=== PATIENT | female | born 1995 ===

== ENCOUNTER 2023-07-02 23:32 | Emergency (ER) | payer SELFPAY ==
[~2023-07-02] VITALS: Ht 162.6 cm; Wt 68.0 kg
[2023-07-02 23:33] VITALS: BP 112/66; TEMP 97.2; O2SAT 98
[2023-07-02] MEDS ORDERED: CETI10CH PO (23:44)
[2023-07-02] MEDS ORDERED: DYMI137S NARES (23:44)
[2023-07-02] MEDS ORDERED: PROP40TA62 PO (23:44)
[2023-07-02] MEDS ORDERED: RIZA10TA2 PO (23:44)
== END 2023-07-03 01:29 | disposition left against medical advice (07) ==
LOC: M ED 23:32
DX: G43.909 Migraine, unspecified, not intractable, without status migrainosus (principal); Z53.21 Procedure and treatment not carried out due to patient leaving prior to being seen by health care provider